=== PATIENT | male | born 2000 | race Caucasian/White ===

== ENCOUNTER 2024-05-03 16:01 | Emergency (ER) | payer OTHER, SELFPAY ==
[2024-05-03 16:01] VITALS: BP 147/105; PULSE 110; RESP 20; TEMP 36.6; O2SAT 98; BMI 32.1
[2024-05-03 16:12] LABS: Microscopic, Urine URINE MICROSCOPIC (MICROSCOPIC)
[2024-05-03 16:14] LABS: Appearance,Urine CLEAR (Clear); Bilirubin,Urine Negative (Negative); Blood, Urine Negative (Negative); Color,Urine YELLOW (Yellow); Glucose,Urine (UA) Negative (Negative); Ketones,Urine 1+ (Negative); Leukocyte Esterase,Urine Negative (Negative); Nitrate,Urine Negative (Negative); Protein,Urine Negative (Negative); Specific Gravity, Urine >= 1.030 (1.005-1.030); Urobilinogen,Urine 0.2 EU/dl (0.2)
--- NOTE | 2024-05-03 16:20 | CT_ITS ---
PROCEDURE INFORMATION: Exam: CT Abdomen And Pelvis With Contrast Exam date and time: 05/03/2024 4:58 PM Age: 24 years old Clinical indication: Abdominal pain; Flank; Left upper quadrant (luq); Additional info: Chronic luq L flank pain TECHNIQUE: Imaging protocol: Computed tomography of the abdomen and pelvis with contrast. Radiation optimization: All CT scans at this facility use at least one of these dose optimization techniques: automated exposure control; mA and/or kV adjustment per patient size (includes targeted exams where dose is matched to clinical indication); or iterative reconstruction. Contrast material: ISOVUE; Contrast volume: 75 ml; Contrast route: IV; COMPARISON: No relevant prior studies available. FINDINGS: Liver: Normal. No mass. Gallbladder and biliary ducts: Normal. No calcified stones. No ductal dilation. Pancreas: Normal. No ductal dilation. Spleen: Normal. No splenomegaly. Adrenal glands: Normal. No mass. Kidneys and ureters: Normal. No hydronephrosis. Stomach and bowel: Unremarkable. No obstruction. No mucosal thickening. Appendix: No evidence of appendicitis. Intraperitoneal space: Unremarkable. No free air. No significant fluid collection. Vasculature: Unremarkable. No abdominal aortic aneurysm. Lymph nodes: Unremarkable. No enlarged lymph nodes. Urinary bladder: Unremarkable as visualized. Reproductive: Unremarkable as visualized. Bones/joints: Unremarkable. No acute fracture. Soft tissues: Unremarkable. IMPRESSION: Normal exam.
--- NOTE | 2024-05-03 16:32 | ED_ITS ---
Discharge Plan Disposition Chief Complaint: Abdominal Pain Prescriptions Prescriptions: No Action No Known Home Medications Referrals Follow up/Referrals: Provider,MD Anastacia [Primary Care Provider] - See instructions Harjinder Escalante II, MD [Staff Physician] - See instructions Activity Restrictions/Add. Instructions Additional Instructions/Restrictions: At this time it was felt you are safe to be discharged home. If new or worsening symptoms please do not hesitate to return the emergency department. Please call and schedule an appointment with Dr. Escalante as soon as you are able for continued evaluation. He is the gut doctor. Clinical Impressions Clinical Impression: Abdominal pain, chronic, left upper quadrant Instructions Patient Instructions: DI for Acute Abdominal Pain Print Language Print Language: Greek Discharge ED Provider: Rolando Chiu General Adult HPI General Chief complaint: Abdominal Pain Stated complaint: abd pain Time Seen by Provider: 05/03/24 16:16 History of Present Illness HPI narrative: Patient is a 24-year-old male with no comorbidities who presents emergency department for evaluation chronic left upper quadrant abdominal pain. It is paroxysmal occurring daily, stabbing, left upper quadrant, sometimes worse with food. No chest pain. No abdominal surgeries. Normal stooling, no dysuria. No other acute complaints at this time. Please note that above description of symptoms, in this electronic medical record under categorization of recalled from ER triage doctor by RN are reflective of an initial nursing assessment, however, is not reflective of my full history and physical exam that was personally taken and clarified. Consequentially, this preceding description of symptoms, which may include the patient's categorized chief complaint in the EMR, do not reflect my personal clinical impression, and the ultimate description of history of present illness and patient stated complaints should be deferred to this section of the note. Unless stated otherwise or congruent with this section of the note, additional signs, symptoms, or incongruence should be interpreted as inaccurate with my clinical impression. Related Data Home Medications ?Medication ?Instructions ?Recorded ?Confirmed No Known Home Medications 05/03/24 05/03/24 Allergies Allergy/AdvReac Type Severity Reaction Status Date / Time PCN (PENICILLIN) Allergy Unknown Other Uncoded 05/03/24 16:46 [facility] Disclaimer: The information contained in this section may have been updated after the patient was seen, as this information can be updated by other users. Medical History (Updated 05/03/24 @ 17:48 by Rolando Chiu MD) No significant past medical history Surgical History (Updated 05/03/24 @ 16:45 by Alonzo Bland, RN) No significant past surgical history Social History Smoking Status: Never smoker alcohol intake: never current occupational status: employed Travel in the last 8 weeks: None ROS Obtained: Yes Systems reviewed as appropriate & no additional complaints except as documented Physical Exam General General appearance: alert and in no apparent distress Head Head exam: atraumatic and normocephalic Eye Eye exam: Present PERRL ENT ENT exam: Present mucous membranes moist Neck Neck exam: Present normal inspection Chest Chest inspection: Present normal inspection and symmetric chest wall rise Respiratory Respiratory exam: Present normal lung sounds bilaterally; Absent respiratory distress Cardiovascular Cardiovascular exam: Present regular rate and normal rhythm Abdominal Exam Abdominal exam: Present soft; Absent tenderness, guarding, rebound or rigidity Extremities Exam Extremities exam: Present normal inspection Neurological Exam Neurological exam: Present alert Psychiatric Psychiatric exam: Present normal affect Skin Skin exam: Present warm and dry Medical Decision Making Medical Records Screening: Per USPSTF and CDC recommendations, given the prevalence of disease in our region, it is our hospital?s policy to screen for HIV and viral Hepatitis for all patients aged 18 and over and those with ongoing risk factors. [place]an Inquiry Pt receiving controlled substance: No Vital Signs: 05/03/24 16:01 Temperature 97.8 F Temperature Source Oral Pulse Rate [Left Radial] 110 H Respiratory Rate 20 Blood Pressure [Right Arm] 147/105 H Blood Pressure Mean [Right Arm] 119 02 Sat by Pulse Oximetry 98 Oxygen Delivery Method Room Air Lab Data Lab Results 05/03/24 16:07: Urine Color Yellow, Urine Appearance Clear, Urine pH 6.0, Ur Specific [place] >= 1.030, Urine Protein Negative, Urine Glucose (UA) Negative, Urine Ketones 1+, Urine Blood Negative, Urine Nitrate Negative, Urine Bilirubin Negative, Urine Urobilinogen 0.2, Ur Leukocyte Esterase Negative, Urine RBC 3-5, Urine WBC 10-20, Ur Squamous Epith Cells 3-5, Urine Bacteria 1+, Urine Mucus 1+ 05/03/24 16:46: WBC 8.5, RBC 5.32, Hgb 16.1, Hct 46.1, MCV 86.7, MCH 30.3, MCHC 34.9, RDW 12.1, Plt Count 249, MPV 10.3, Neut % (Auto) 64.6, Lymph % (Auto) 26.0, [place] % (Auto) 8.0, Eos % (Auto) 0.9, Baso % (Auto) 0.4, Neut # (Auto) 5.5, Lymph # (Auto) 2.2, [place] # (Auto) 0.7, Eos # (Auto) 0.1, Baso # (Auto) 0.0, Sodium 138, Potassium 3.5, Chloride 99, Carbon Dioxide 27, Anion Gap 15.5 H, BUN 13, Creatinine 1.00, Estimated Creat Clear 171, Estimated GFR 93, Est GFR ( Amer) 113, Glucose 83, Calcium 9.8, Total Bilirubin 0.9, AST 30, ALT 30, Alkaline Phosphatase 159 H, Total Protein 8.1, Albumin 5.1 H, Globulin 3.0, Albumin/Globulin Ratio 1.7, Lipase 52 05/03/24 16:46 05/03/24 16:46 Orders (Tests/Meds): ED MEDICATIONS Discontinued Medications Generic Name Dose Route Start Last Admin Trade Name Freq PRN Reason Stop Dose Admin Iopamidol 75 ml 05/03/24 17:01 05/03/24 17:02 Iopamidol-370 (76%);100ml Bottle IV 05/03/24 17:02 75 ml ONCE ONE Administration Sodium Chloride 10 ml 05/03/24 17:01 05/03/24 17:02 Sodium Chloride 0.9% 10ml Syr (Rad Only) IV 05/03/24 17:02 10 ml ONCE ONE Administration ORDERS Category Date Time Status CT abdomen pelvis w con Stat Cat Scan 05/03/24 16:20 Completed CBC w/Auto Diff [Complete Blood Count Auto Diff] Stat Lab 05/03/24 16:46 Completed CMP [Comprehensive Metabolic Panel] Stat Lab 05/03/24 16:46 Completed Lipase Stat Lab 05/03/24 16:46 Completed UA [Urinalysis and Microscopic] Stat Lab 05/03/24 16:07 Completed Urine Culture Stat Micro 05/03/24 16:07 Received Medical Decision Narrative: In summary patient is a 24-year-old male past medical history described above who presents emergency department for evaluation of chronic left upper quadrant abdominal pain. Patient is hemodynamically stable nontoxic-appearing upon arrival, afebrile and nonfocal neurologic exam. Differential includes splenic pathology, peptic ulcer disease, mass, among others. Workup will be conducted with hematologic labs, urinalysis, CT abdomen pelvis IV contrast. Initial inventions were considered but will be deferred given the patient is asymptomatic at this time. Initial workup reviewed by me, hematologic labs are nonactionable no significant leukocytosis no anemia, normal creatinine, normal lipase, urinalysis interpreted by me and equivocal with squamous cells, patient does not have any significant dysuria will defer empiric treatment at this time. CT imaging of the abdomen pelvis normal exam formal read. CT informally visualized by me no obvious splenic pathology. Given this patient is appropriate for outpatient management at this time will be referred to GI on an outpatient basis. Critical Care Critical Care Time Critical Care Time: No
[2024-05-03 16:48] LABS: Bacteria,Urine 1+ /lpf; Mucus,Urine 1+ /lpf
--- NOTE | 2024-05-03 16:51 | PC.NURSE ---
Established 18ga IV in patients R AC, after establishment of line patient stated oh boy' and had a syncopal episode. He was assisted to the be with his legs placed on the bed. Patient did not strike his head or suffer from any injury during this.
[2024-05-03] MEDS: IOPAMIDOL-370 (76%);100ML BOTTLE 75 ML IV (17:02)
[2024-05-03] MEDS: SODIUM CHLORIDE 0.9% 10ML SYR (RAD ONLY) 10 ML IV (17:02)
[2024-05-03 17:14] LABS: Basophils % 0.4 % (0.1-2.0); Eosinophils # 0.1 K/mm3 (0.0-0.4); Eosinophils % 0.9 % (0.1-12.0); Hematocrit 46.1 % (42.0-52.0); Hemoglobin 16.1 g/dL (14.1-18.0); Lymphocytes # 2.2 K/mm3 (0.7-4.5); Mean Corpuscular HGB Conc 34.9 g/dL (31.8-35.4); Mean Corpuscular Hemoglobin 30.3 pg (27.0-31.2); Mean Corpuscular Volume 86.7 fl (80-94); Mean Platelet Volume 10.3 fl (7.4-10.4); Monocytes # 0.7 K/mm3 (0.1-1.0); Neutrophils # 5.5 K/mm3 (1.8-7.8); Neutrophils % 64.6 % (37.0-80.0); Platelet Count 249 K/mm3 (142-424); Red Blood Count 5.32 M/mm3 (4.60-6.20); Red Cell Distribution Width 12.1 % (11.5-17.5); White Blood Count 8.5 K/mm3 (4.8-10.8)
[2024-05-03 17:22] LABS: Albumin Level 5.1 g/dl (3.5-5.0); Chloride 99 mmol/L (98-107); Potassium 3.5 mmoL/L (3.5-5.1); Sodium 138 mmol/L (136-145)
[2024-05-03 17:24] LABS: Blood Urea Nitrogen 13 mg/dl (9-20); Creatinine Clearance Estimated 171 mL/min (50-200); Estimated Glomerular Filt Rate 93 ml/min (>60); GFR (African American) 113 ML/MIN (>60)
[2024-05-03 17:25] LABS: Alanine Aminotransferase 30 U/L (12-78); Albumin/Globulin Ratio 1.7 (1.1-1.8); Alkaline Phosphatase 159 U/L (38-126); Anion Gap 15.5 mEq/L (5-15); Aspartate Amino Transferase 30 U/L (17-59); Bilirubin,Total 0.9 mg/dl (0.2-1.3); Calcium 9.8 mg/dl (8.4-10.2); Carbon Dioxide 27 mmol/L (22.0-30.0); Glucose 83 mg/dl (74-100); Lipase 52 U/L (23-300); Total Protein,Serum 8.1 g/dl (6.3-8.2)
[2024-05-03 17:56] VITALS: BP 144/99; PULSE 92; RESP 18; TEMP 36.8; O2SAT 99
== END 2024-05-03 17:56 | disposition home or self-care (01) ==
PROVIDERS: Emergency Provider Emergency Medicine
DX: R10.12 Left upper quadrant pain (principal)
CPT/HCPCS: 74177; 80053; 81001; 83690; 85025; 87086; 99285; Q9967